=== PATIENT | female | born 1985 ===

== ENCOUNTER 2024-03-30 08:45 | Inpatient (IN) | payer OTHER ==
[~2024-03-30] VITALS: Ht 160 cm; Wt 3.2 kg
[2024-03-30 11:25] LABS: HEMATOCRIT 39.8 % (36.0-45.00); HEMOGLOBIN 13.2 g/dL (12.0-15.00); MEAN CELL VOLUME 86.3 fL (80.00-100.00); MEAN CORPUSCULAR HEMOGLOBIN 28.6 pg (27.00-32.0); MEAN CORPUSCULAR HGB CONC 33.1 g/dl (32.0-36.0); PLATELET COUNT 256 K/uL (150-450); RED BLOOD COUNT 4.61 M/uL (4.00-6.00); RED CELL DISTRIBUTION WIDTH 15.4 % (11.5-14.5)
[2024-03-30 11:39] LABS: INR 0.97; PARTIAL THROMBOPLASTIN TIME 27.1 SECONDS (22.0-34.0); PROTHROMBIN TIME 10.6 SECONDS (9.0-11.5)
[2024-03-30 11:49] LABS: ALBUMIN 2.6 gm/dL (3.4-5.0); BILIRUBIN TOTAL 0.19 mg/dL (0.3-1.2); CALCIUM 9.1 mg/dL (8.5-10.1); CREATININE SERUM 0.64 mg/dL (0.55-1.02); GLOBULINA 4.7 G/DL (2.4-3.5); POTASSIUM 3.99 mEq/L (3.5-5.1); TOTAL PROTEIN 7.3 gm/dL (6.4-8.2)
[2024-04-07] MEDS ORDERED: PRENATAL + DHA1 EAC1 PO (06:26)
[2024-04-07 06:27] VITALS: BP 108/70
[2024-04-07] MEDS ORDERED: ERYTHROMYCIN BASE OPHT 1GM EACH TUBE OP ONE ×2 (07:59→14:09)
[2024-04-07] MEDS ORDERED: OXYTOCIN 10 UNITS/ML VIAL ONE ×3 (07:59→18:50)
[2024-04-07] MEDS ORDERED: CITRIC ACID/SODIUM CITRATE 30 ML BLIST.PACK PO ONE ×2 (07:59→10:30)
[2024-04-07] MEDS ORDERED: CEFAZOLIN SODIUM 1,000 MG VIAL ONE (08:00)
[2024-04-07] MEDS ORDERED: OXYTOCIN 1,000 ML IV ONE (15:45)
[2024-04-07] MEDS ORDERED: MORPHINE SULFATE 4 MG/ML CARTRIDGE IV SCH (16:00)
[2024-04-07] MEDS ORDERED: CEFAZOLIN SODIUM 1,000 MG VIAL IV ONE (16:30)
[2024-04-07] MEDS ORDERED: SIMETHICONE 125 MG CAPSULE PO SCH (17:00)
[2024-04-07] MEDS ORDERED: GABAPENTIN 300 MG CAPSULE PO SCH (17:00)
[2024-04-07] MEDS ORDERED: MORPHINE SULFATE 4 MG/ML VIAL IV ONE (17:45)
[2024-04-07] MEDS ORDERED: IBUprofen 600 MG TABLET PO SCH (18:00)
[2024-04-07] MEDS ORDERED: KETOROLAC TROMETHAMINE 30 MG VIAL IV SCH (18:00)
[2024-04-07] MEDS ORDERED: KETOROLAC TROMETHAMINE 30 MG VIAL ONE (18:38)
[2024-04-07 19:30] VITALS: BP 103/64; O2SAT 98
[2024-04-08 00:37] VITALS: BP 105/69; O2SAT 97
[2024-04-08] MEDS ORDERED: ACETAMINOPHEN 500 MG GEL..CAP PO SCH (05:00)
[2024-04-08 08:23] VITALS: BP 98/64
[2024-04-08] MEDS ORDERED: PNV,CALCIUM 72/IRON/FOLIC ACID 1 TAB TABLET PO SCH (09:00)
[2024-04-08] MEDS ORDERED: DOCUSATE SODIUM 100MG CAP PO SCH (09:00)
[2024-04-08 10:22] LABS: HEMATOCRIT 37.4 % (36.0-45.00); HEMOGLOBIN 12.6 g/dL (12.0-15.00); MEAN CELL VOLUME 86.6 fL (80.00-100.00); MEAN CORPUSCULAR HEMOGLOBIN 29.1 pg (27.00-32.0); MEAN CORPUSCULAR HGB CONC 33.6 g/dl (32.0-36.0); PLATELET COUNT 222 K/uL (150-450); RED BLOOD COUNT 4.31 M/uL (4.00-6.00); RED CELL DISTRIBUTION WIDTH 15.6 % (11.5-14.5)
[2024-04-08 16:00] VITALS: BP 98/66; O2SAT 98
[2024-04-09] VITALS: BP 101/66; O2SAT 97
[2024-04-09 05:00] VITALS: BP 101/69; O2SAT 97
[2024-04-09] MEDS ORDERED: OxyCODONE HCL 5 MG TABLET (ROXICODONE) PO PRN (06:00)
[2024-04-09 06:25] LABS: HEMATOCRIT 37.7 % (36.0-45.00); HEMOGLOBIN 12.6 g/dL (12.0-15.00); MEAN CORPUSCULAR HEMOGLOBIN 29.5 pg (27.00-32.0); MEAN CORPUSCULAR HGB CONC 33.5 g/dl (32.0-36.0); PLATELET COUNT 226 K/uL (150-450); RED BLOOD COUNT 4.29 M/uL (4.00-6.00); RED CELL DISTRIBUTION WIDTH 15.4 % (11.5-14.5)
[2024-04-09] MEDS ORDERED: IBUprofen 400 MG TABLET PO SCH (09:00)
[2024-04-09 09:04] VITALS: BP 118/80; O2SAT 96
[2024-04-09] MEDS ORDERED: IBUprofen 600 MG TABLET PO SCH (12:00)
[2024-04-09 15:55] VITALS: BP 111/75
[2024-04-09 20:59] VITALS: BP 109/72
[2024-04-10 01:47] VITALS: BP 101/66
[2024-04-10 08:49] VITALS: BP 98/63; O2SAT 98
== END 2024-04-10 16:53 | disposition home or self-care (01) | DRG 785 ==
LOC: OB/GYN 04-07 05:20 → O/R 04-07 05:20 → OB/GYN 04-07 07:00
PROVIDERS: Obstetrics & Gynecology; Obstetrics & Gynecology Gynecology; ADMIT Obstetrics & Gynecology; ATTEND Obstetrics & Gynecology
PROC: 0UB70ZZ Excision of Bilateral Fallopian Tubes, Open Approach (ICD-10-PCS; 2024-04-07)
PROC: 4A1HXCZ Monitoring of Products of Conception, Cardiac Rate, External Approach (ICD-10-PCS; 2024-04-07)
PROC: 10D00Z1 Extraction of Products of Conception, Low, Open Approach (ICD-10-PCS; principal; 2024-04-07 07:00)
DX: O34.211 Maternal care for low transverse scar from previous cesarean delivery (principal); Z30.2 Encounter for sterilization; Z3A.39 39 weeks gestation of pregnancy; Z37.0 Single live birth; Z20.822 Contact with and (suspected) exposure to COVID-19